=== PATIENT | male | born 1955 | race African-American/Black ===

== ENCOUNTER 2024-02-27 09:18 | Emergency (ER) | payer MEDICAID, MEDICARE ==
[~2024-02-27] VITALS: Ht 170.2 cm; Wt 81.0 kg
[~2024-02-27 09:18] MED LIST: FLUP10TA28 PO; TRIH2TAB3 PO
[2024-02-27 09:40] VITALS: TEMP 98
[2024-02-27] MEDS ORDERED: BENZ0.5T6 PO (09:45)
[2024-02-27] MEDS ORDERED: BENZ1TAB84 PO (10:26)
[2024-02-27] MEDS ORDERED: FLUP10TA28 PO (10:27)
[2024-02-27 10:42] VITALS: BP 110/72; PULSE 77; RESP 16
== END 2024-02-27 10:43 | disposition home or self-care (01) ==
LOC: EMS 09:18
DX: F25.9 Schizoaffective disorder, unspecified (principal); I10 Essential (primary) hypertension; F17.210 Nicotine dependence, cigarettes, uncomplicated; Z76.0 Encounter for issue of repeat prescription
CPT/HCPCS: 99283; Z7502

== ENCOUNTER 2025-07-01 19:37 | Emergency (ER) | payer MEDICARE, MEDICAID ==
[~2025-07-01] VITALS: Ht 167.6 cm; Wt 59.1 kg
[~2025-07-01 19:37] MED LIST changes: +AMLO-258 PO; +DUTA0.5C38 PO; -FLUP10TA28 PO; +LOSA-382 PO; +MELA5TAB40 PO; +MIDO2.5T19 PO; +NALT50TA6 PO; +OLAN10TA74 PO; +SODI100067 PO; +TAMS0.4C94 PO; -TRIH2TAB3 PO
[2025-07-01 20:24] VITALS: BP 138/79; PULSE 80; RESP 16; TEMP 97.9; O2SAT 99
== END 2025-07-01 23:00 | disposition left against medical advice (07) ==
LOC: EMS 19:37
DX: Z53.21 Procedure and treatment not carried out due to patient leaving prior to being seen by health care provider (principal)